=== PATIENT | male | born 1995 | race Two or more races ===

== ENCOUNTER 2021-08-02 21:17 | Emergency (ER) | payer SELFPAY ==
[2021-08-02] MEDS ORDERED: Acetaminophen 325 MG Tab PO ONE (21:44)
--- NOTE | 2021-08-02 21:48 | EDM.PDOC ---
ED HPI GENERAL MEDICAL PROBLEM - General Chief Complaint: Respiratory Problem Stated Complaint: SOB HEADACHE Time Seen by Provider: 08/02/21 21:38 Source of Information: Reports: Patient, RN Notes Reviewed, Other (friend in room who translates) History Limitations: Reports: No Limitations, Language Barrier (friend in room who translates) - History of Present Illness INITIAL COMMENTS - FREE TEXT/NARRATIVE: Patient is a 25-year-old male who presents to the ER for evaluation of his fever and headache. Patient is primarily Burkinan-speaking, so a friend in the room does help to translate. States that he has been ill for about 8 days with elevated temperatures, states he does not have a thermometer to check his temperature. Headache, body aches, shortness of breath and feelings of not being able to catch his breath. Denies any other past medical history, and states that he is a fairly healthy individual otherwise. He became concerned today, due to the feelings of shortness of breath, and mild chest discomfort. Generalized Pain Score (Numeric/FACES): 3 - Related Data Allergies Allergy/AdvReac Type Severity Reaction Status Date / Time bismuth subsalicylate Allergy Difficulty Verified 08/02/21 21:35 [From Pepto-Bismol] Breathing famotidine [From Pepcid] Allergy Difficulty Verified 08/02/21 21:35 Breathing ondansetron [From Zofran] Allergy Difficulty Verified 08/02/21 21:35 Breathing Home Meds: Home Meds . [No Known Home Meds] 08/02/21 [History] Past Medical History - Past Health History Medical/Surgical History: Denies Medical/Surgical History Social & Family History - Tobacco Use Tobacco Use Status *Q: Never Tobacco User Second Hand Smoke Exposure: No - Caffeine Use Caffeine Use: Reports: Coffee, Energy Drinks, Soda - Recreational Drug Use Recreational Drug Use: No ED ROS GENERAL - Review of Systems Review Of Systems: Comprehensive ROS is negative, except as noted in HPI. ED EXAM, GENERAL - Physical Exam Exam: See Below Exam Limited By: No Limitations General Appearance: Alert, WD/WN, No Apparent Distress Respiratory/Chest: No Respiratory Distress, Lungs Clear, Normal Breath Sounds, No Accessory Muscle Use, Chest Non-Tender Cardiovascular: Normal Peripheral Pulses, Regular Rate, Rhythm, No Edema Peripheral Pulses: 2+: Radial (L), Radial (R) Extremities: Normal Inspection, Normal Capillary Refill Neurological: Alert, Oriented, Normal Cognition, No Motor/Sensory Deficits Psychiatric: Normal Affect, Normal Mood Skin Exam: Warm, Dry, Intact, Normal Color, No Rash Course - Vital Signs Last Recorded V/S: Last Vital Signs Temp 99.6 F 08/02/21 21:31 Pulse 86 08/02/21 21:31 Resp 18 08/02/21 21:31 BP 146/79 H 08/02/21 21:31 Pulse Ox 100 08/02/21 21:31 - Orders/Labs/Meds Orders: Active Orders 24 hr Category Date Time Status Chest 1V Frontal [CR] Stat Exams 08/02/21 21:41 Ordered Labs: Laboratory Tests 08/02/21 Range/Units 21:25 Influenza Type A RNA Negative (NEGATIVE) Influenza Type B RNA Negative (NEGATIVE) SARS-CoV-2 RNA (YESSI) Positive H (NEGATIVE) Meds: Medications Discontinued Medications Generic Name Dose Route Start Last Admin Trade Name Freq PRN Reason Stop Dose Admin Acetaminophen 650 mg 08/02/21 21:44 08/02/21 21:48 Acetaminophen 325 Mg Tab PO 08/02/21 21:45 650 mg NOW ONE Administration - Re-Assessments/Exams Free Text/Narrative Re-Assessment/Exam: 08/02/21 21:47 Patient presents to the ER for evaluation of his acute illness, a Covid/flu swab was obtained at the time of triage. We will go ahead and get a chest x-ray for further investigation. I will give some oral Tylenol for his headache. 08/02/21 22:28 Patient's COVID-19 screen did come back positive. Chest x-ray was obtained and demonstrates no obvious sign of any acute infiltrates official radiology read is still pending. Departure - Departure Time of Disposition: 22:28 Disposition: Home, Self-Care 01 Condition: Good Clinical Impression: COVID-19 - Discharge Information *PRESCRIPTION DRUG MONITORING PROGRAM REVIEWED*: No *COPY OF PRESCRIPTION DRUG MONITORING REPORT IN PATIENT RENÉE: No Instructions: 10 Things You Can Do to Manage Your COVID-19 Symptoms at Home - [facility] (02/08/2021) Forms: ED Department Discharge Additional Instructions: You were seen in the ER today for ongoing and/or worsening respiratory symptoms. Your chest x-ray showed no signs of pneumonia at this time. You did test positive for COVID-19. Please try to increase your oral fluid intake, and eat multiple small meals throughout the day, to keep yourself healthy. You need to keep yourself nourished in order to fight off this disease. You can try a liquid diet like gatorade/powerade as well to get your electrolytes. You may take 500 mg Tylenol every hours 6 hours for pain/fever relief. Do not exceed 4000 mg Tylenol in a 24-hour time span. However, running a fever is your body's natural response to illness, and it allows the body to develop antibodies to disease, we are recommending trying to limit the use of Tylenol as much as possible to allow your body's natural immune response. Recommend you obtain a pulse oximeter and monitor your oxygen levels at home, you should place the monitor on your finger, and sit in a calm, quiet position for a few minutes and then record the number that is on the screen. If this consistently below 90% on room air without movement, this would be cause for concern to come back to the hospital for further management of your COVID-19 disease. Current CDC guidelines are that you quarantine/isolate for the first 5 days from symptom onset; and then you may leave the house on last 5 days if you are masked. Hoy lo vieron en la yennifer de emergencias por sntomas respiratorios en curso o que empeoraron. Martínez radiografa de trax no mostr signos de neumona en lelo momento. Reagan positivo en la prueba de COVID-19. Intente aumentar la ingesta de lquidos por va oral y coma varias comidas pequeas a lo argelia del da para mantenerse saludable. Necesita mantenerse nutrido para combatir esta enfermedad. Tambin puede probar estela dieta lquida devon gatorade / powerade para obtener juan c electrolitos. Puede margarito 500 mg de Tylenol cada 6 horas para aliviar el dolor o la fiebre. No exceda los 4000 mg de Tylenol en un lapso de tiempo de 24 horas. Sin embargo, tener fiebre es la respuesta natural de martínez cuerpo a la enfermedad y permite que el cuerpo desarrolle anticuerpos contra la enfermedad, recomendamos tratar de limitar el uso de Tylenol tanto devon sea posible para permitir la respuesta inmune natural de martínez cuerpo. Te recomiendo que obtengas un oxmetro de pulso y monitorees tus niveles de oxgeno en casa, debes colocar el monitor en tu dedo, y sentarte en estela posicin tranquila y silenciosa por unos minutos y luego registrar el nmero que est en la pantalla. Si est constantemente por debajo del 90% en el aire de la habitacin sin movimiento, sera motivo de preocupacin para volver al hospital para un mayor control de martínez enfermedad COVID-19. Las pautas actuales de los CDC son que se ponga en cuarentena / se asle ben los primeros 5 martinez desde la aparicin de los sntomas; y luego puede salir de la casa los ltimos 5 martinez si est enmascarado. Sepsis Event Note (ED) - Focused Exam Vital Signs: Vital Signs Temp Pulse Resp BP Pulse Ox 08/02/21 21:31 99.6 F 86 18 146/79 H 100 - My Orders Last 24 Hours: My Active Orders 08/02/21 21:41 Chest 1V Frontal [CR] Stat - Assessment/Plan Last 24 Hours: My Active Orders 08/02/21 21:41 Chest 1V Frontal [CR] Stat
[2021-08-02 22:23] LABS: CORONAVIRUS COVID-19 NAA POSITIVE (NEGATIVE)
--- NOTE | 2021-08-05 08:52 | CR ---
EXAM: CHEST SINGLE VIEW PORTABLE LOCATION: [facility] DATE/TIME: 08/02/2021 9:58 PM INDICATION: COVID infection is suspected. COMPARISON: None. FINDINGS: The lungs are clear. Normal size cardiac silhouette. IMPRESSION: No evidence of active cardiopulmonary disease. SIGNED BY: Ovidio Lau MD 08/02/2021 11:14 PM [facility]
== END 2021-08-02 22:36 | disposition home or self-care (01) ==
LOC: JD.ED 21:17
DX: U07.1 COVID-19 (principal); Z88.8 Allergy status to other drugs, medicaments and biological substances
CPT/HCPCS: 0240U; 71045; 99284; A9270